=== PATIENT | male | born 1955 | race Caucasian/White ===

== ENCOUNTER → 2018-06-17 06:06 | Outpatient (CLI) | payer BC, SELFPAY ==
--- NOTE | 2018-06-17 | DI.MRI.S_ITS ---
PROCEDURE: MR WRIST RT WO/W CON INDICATIONS: Right wrist pain and weakness TECHNIQUE: Noncontrast coronal proton density fast spin echo and T2 fast spin echo with fat saturation; coronal 3-D gradient echo, axial T1 spin echo and T2 fast spin echo with fat saturation, axial T1 spin echo with fat saturation, sagittal T1 spin echo through the wrist. Post-contrast axial, coronal, and sagittal T1 spin echo with fat saturation through the wrist. COMPARISON: None. FINDINGS: Image quality: Excellent. Bones and cartilage: No suspicious osseous enhancement. The carpal bones are normally aligned. No bone marrow contusions or fractures. No evidence for avascular necrosis. Carpal ligaments: The scapholunate ligament is not well visualized and there is suspected widening of the scapholunate interval this could be confirmed with clenched fist radiographic evaluation. The lunotriquetral ligament appears intact. In the absence of intra-articular contrast, the extrinsic carpal ligaments are not well identified. Triangular fibrocartilage complex: The triangular fibrocartilage appears intact. The adjacent meniscal homolog appears normal in the absence of intra-articular contrast. The extensor carpi ulnaris tendon is normal in location and morphology. Tendons and soft tissues: No suspicious soft tissue enhancement. The carpal tunnel structures appear normal, including the median nerve. The ulnar nerve appears normal within Guyon's canal. Possible subcentimeter ganglion cyst seen in the region of the volar/ulnar aspect of the wrist joint capsule, image 15 series 5. There is extensor carpi radialis longus and brevis tenosynovitis image 18 series 5. There is also mild T2 hyperintensity surrounding the flexor tendons raising the possibility of carpal tunnel syndrome although this remains a clinical diagnosis. IMPRESSION: Scapholunate ligament tear although technically age-indeterminate. This could be confirmed with dedicated MR arthrography if clinically required. Extensor carpi radialis longus and brevis tenosynovitis. Diffuse mild T2 hyperintensity surrounding the flexor tendons raising possibility of carpal tunnel syndrome however this remains a clinical diagnosis and therefore recommend correlation to exam findings. Subcentimeter ganglion cyst involving the volar/ulnar aspect of the carpus. Dictated by: Stephen Mariano M.D. on 06/17/2018 at 8:58 Approved by: Stephen Mariano M.D. on 06/17/2018 at 9:09
== END ==
PROVIDERS: Visit Provider Family Medicine
DX: M25.531 Pain in right wrist (principal); S63.591A Other specified sprain of right wrist, initial encounter; M65.831 Other synovitis and tenosynovitis, right forearm; M67.431 Ganglion, right wrist
CPT/HCPCS: 73221; 73223

== ENCOUNTER 2020-11-28 09:03 | Observation (INO) | payer OTHER, BC, SELFPAY ==
[2020-11-28] VITALS (40 sets, daily range): BP systolic 93–178; BP diastolic 55–100; PULSE 78–108; RESP 10–93; TEMP 35.9–37.1; O2SAT 12–100; BMI 30.4
--- NOTE | 2020-11-28 | DI.RAD.S_ITS ---
PROCEDURE: XR SHOULDER RT MIN 2V INDICATIONS: POST REDUCTION TECHNIQUE: 2 fluoroscopic views of the shoulder were acquired. COMPARISON: Merged With [facility], , XR SHOULDER RT MIN 2V, 11/28/2020, 10:46. FINDINGS: Bones: Satisfactory reduction of shoulder dislocation. Displaced inferior glenoid fracture present. Soft tissues: No suspicious soft tissue calcifications. IMPRESSION: Satisfactory reduction of shoulder dislocation. Displaced inferior glenoid fracture. Dictated by: Florian Morrissey M.D. on 11/28/2020 at 18:49 Approved by: Florian Morrissey M.D. on 11/28/2020 at 18:49
--- NOTE | 2020-11-28 09:03 | DI.RAD.S_ITS ---
PROCEDURE: XR HUMERUS RT 2V INDICATIONS: fall, deformity TECHNIQUE: 2 views of the humerus were acquired. COMPARISON: None. FINDINGS: Bones: Anterior-inferior dislocation at glenohumeral joint is seen. Linear radiolucency involving inferior glenoid is seen suggestive of a minimally displaced fracture. No suspicious bony lesions. Soft tissues: Significant soft tissue swelling over anterolateral aspect of right shoulder is seen with suggestion of joint effusion. No suspicious soft tissue calcifications. IMPRESSION: Anterior-inferior dislocation at glenohumeral joint with minimally displaced fracture line through inferior glenoid. Dictated by: Markos Alejandra M.D. on 11/28/2020 at 9:43 Approved by: Markos Alejandra M.D. on 11/28/2020 at 9:49
--- NOTE | 2020-11-28 09:05 | ED.FALL ---
HPI - Fall General Chief Complaint: Extremity Injury, Upper Stated Complaint: GLF Time Seen by Provider: 11/28/20 09:03 Source: patient and EMS Mode of arrival: EMS Limitations: no limitations History of Present Illness HPI Narrative: This is a 65-year-old male who is brought via EMS for ground level fall. Patient states he tripped and fell at work landing on his right shoulder. Patient has significant pain at the shoulder. He also struck his head has a laceration of the right forehead. Patient denies loss of consciousness. He denies any neck or back pain. Patient denies any chest pain or shortness of breath. He describes tingling numbness down the whole arm and has difficulty with movement of his hand. Patient denies any current headache, numbness tingling or weakness in his other extremities. States he takes medication for hypertension dyslipidemia. He denies any major prior surgeries. No allergies to medications. He denies any blood thinners such as aspirin, Plavix or other anticoagulants. Patient states he was at work today when this occurred. He lives in [place]. Patient had several doses of pain medication with EMS and is still quite uncomfortable. Related Data Home Medications Medication Instructions Recorded Confirmed atorvastatin 40 mg tablet 40 mg PO DAILY 11/28/20 11/28/20 lisinopril 10 mg tablet 10 mg PO DAILY 11/28/20 11/28/20 omeprazole 20 mg capsule,delayed 20 mg PO DAILY 11/28/20 11/28/20 release Previous Rx's Medication Instructions Recorded ondansetron HCl 4 mg tablet 4 mg PO Q8H PRN #7 tab 11/28/20 (Zofran) oxycodone 5 mg tablet 5 mg PO Q4H PRN #42 tab 11/28/20 Allergies Allergy/AdvReac Type Severity Reaction Status Date / Time Penicillins Allergy Verified 11/28/20 09:10 Review of Systems Review of Systems ROS Unobtainable: All systems reviewed & are unremarkable except as noted in HPI and below Patient History Medical History Dyslipidemia Hypertension Social History household members: spouse Smoking Status: Never smoker Exam Narrative Exam Narrative: GEN: CPatient appears in moderate distress. HEAD: No evidence of trauma with the exception of 1.5 cm laceration of the right forehead that is gapped showing small amount of subcutaneous tissue, no raccoon/Salgado sign. NECK: Nontender, painless range of motion, trachea midline Negative for Nexus criteria, there is no line tenderness, distracting injury, altered mental status, neuro deficit, recent EtOH. EYES: PERRLA, EOMI ENT: External inspection normal other than noted above, trachea is midline, TM's are normal no hemotypanum, Nares are clear, no septal hematoma, no dental or oral injury, airway is normal and with normal occlusion, No bony tenderness RESP: Chest is nontender and has symmetric movement, no ecchymosis, breath sounds are normal no crackles, wheezes or rales CVS: Heart sounds are normal, no murmur noted, No JVD. ABG/GI: Nontender, soft, normal bowel sounds, no distention, no organomegaly, pelvic rock is negative NEURO: Oriented AOx3, neuro is grossly intact, sensation and motor is normal all 4 extremities moving, cranial nerves II through XII are intact, GCS is 15 PSYCH: Normal mood and affect SKIN: Intact, warm and dry, no crepitus and without decubitus BACK: No CVA tenderness, no vertebral tenderness, no step-off's, no crepitus EXT: Patient has obvious deformity at the right mid humeral shaft, patient does not have bony tenderness of the shoulder, clavicle or scapula, he does not tenderness in the or fingers. Patient has 2+ pulses bilaterally. He has sensation to light touch but states he is unable to flex or extend his fingers. Hips are nontender, no pedal edema, normal color and temperature, normal range of motion of all other extremities. Neurovascularly intact in his left upper extremity, and bilateral lower extremities. Initial Vital Signs Initial Vital Signs: Vital Signs Temperature 96.6 F L 11/28/20 09:00 Pulse Rate 84 11/28/20 09:00 Respiratory Rate 18 11/28/20 09:00 Blood Pressure 153/79 H 11/28/20 09:00 Pulse Oximetry 97 11/28/20 09:00 Procedures Laceration Repair Laceration 1: Site: face (forehead) Size (cm): 2.3 Description: linear Depth: simple, single layer Local Anesthetic: lidocaine 1% Amount of anesthesia used (mL): 1.5 Pre-repair: wound explored, irrigated extensively, deep structures intact, extensive debridement and wound margins revised Skin layer closed with: vicryl Size (cm): 5-0 Number of sutures: 4 Technique: simple, interrupted Orthopedic Joint Reduction Joint #1: Time Out Performed: Yes Side: right Joint Reduction Location: shoulder Analgesia: procedural sedation Shoulder Technique Used (if applicable): traction/counter-traction, scapula manipulation, external rotation, Milch, Vanesa and other (FARES) Post-reduction neuro exam: intact and no change Post-reduction vascular: intact and no change Post Reduction X-Ray Obtained: Yes Post Reduction X-Ray Results: not reduced (no major change in glenoid fracture.) Splint Applied: Yes Patient Tolerated Procedure: Well Procedural Sedation Consent signed: Yes Time out performed: Yes Indication: fracture/dislocation reduction ASA Class: II Mallampati Airway Classification: Class II Time of Last PO Intake: 06:00 Preparation: classroom monitor applied, pulse oximeter, capnometry used, supplemental O2 applied and suction/airway equipment at bedside Ketamine: IV Ketamine dose (mg): 90 IV Propofol dose (mg): 50 ED Sedation Level: Moderate (Concious) Patient Tolerated Procedure: Well Complications: none Interventions: Airway repositioned Additional Comments: Patient also had 0.5mg Ativan IV after receiving ketamine Scores GCS Lily coma scale eye opening: Spontaneous Lily coma scale verbal response: Orientated Friendship coma scale motor response: Obey commands Friendship coma scale total score: 15 Course Orders Ordered: ED Orders 11/28/20 10:46 XR shoulder RT min 2V Stat 11/28/20 11:08 CT UE RT wo con Stat Acetaminophen (Acetaminophen 325 Mg Tablet) 650 mg PO PACUNOW PRN PRN Reason: Pain, Mild (1-3) Albuterol (Albuterol 2.5 Mg/3 Ml Neb (Adult)) 2.5 mg INH NOW PRN PRN Reason: Coughing, Wheezing, Dyspnea Fentanyl (Fentanyl 100 Mcg/2 Ml Inj) 0 mcg IV Q5M PRN PRN Reason: Pain, Moderate (4-6) Hydromorphone HCl (Hydromorphone 1 Mg Inj) 1 mg IV Q30MIN PRN PRN Reason: Pain, Severe (7-10) Last Admin: 11/28/20 13:52 Dose: 1 mg Documented by: Admin: 11/28/20 11:44 Dose: 1 mg Documented by: RIMA Lactated Ringer's (Lactated Ringers) 1,000 mls @ 100 mls/hr IV NOW ONE Stop: 11/29/20 00:27 Last Infusion: 11/28/20 19:23 Dose: 0 mls/hr Documented by: Admin: 11/28/20 14:28 Dose: 100 mls/hr Documented by: HCRIS Lorazepam (Lorazepam 2 Mg/Ml Inj) 0.5 mg IV Q4HR PRN PRN Reason: emergence reaction Last Admin: 11/28/20 11:12 Dose: 0.5 mg Documented by: RIMA Ondansetron HCl (Ondansetron 4 Mg/2 Ml Inj) 4 mg IV Q6HR PRN PRN Reason: nausea Last Admin: 11/28/20 09:09 Dose: 4 mg Documented by: RIMA Ondansetron HCl (Ondansetron 4 Mg/2 Ml Inj) 4 mg IV NOW PRN PRN Reason: Nausea And Vomiting Oxycodone HCl (Oxycodone Ir 5 Mg Tablet) 5 mg PO PACUNOW PRN PRN Reason: Mild or moderate pain Last Admin: 11/28/20 19:13 Dose: 5 mg Documented by: NURIS Discontinued Medications Diphtheria/Tetanus/Acell Pertussis (Tet,Diph,Pertuss(Acell),Vac/Pf 0.5 Ml Syringe) 0.5 ml IM .ONCE ONE Stop: 11/28/20 12:34 Last Admin: 11/28/20 13:53 Dose: 0.5 ml Documented by: RIMA Hydromorphone HCl (Hydromorphone 1 Mg Inj) 1 mg IV NOW ONE Stop: 11/28/20 09:04 Last Admin: 11/28/20 09:09 Dose: 1 mg Documented by: RIMA Hydromorphone HCl (Hydromorphone 1 Mg Inj) 1 mg IM NOW ONE Stop: 11/28/20 10:04 Last Admin: 11/28/20 10:08 Dose: 1 mg Documented by: RIMA Hydromorphone HCl (Hydromorphone 0.5 Mg Inj) 1 mg IV NOW ONE Stop: 11/28/20 15:25 Last Admin: 11/28/20 16:08 Dose: 1 mg Documented by: CHRIS Sodium Chloride (Normal Saline 0.9%) 1,000 mls @ 150 mls/hr IV BOLUS ONE Stop: 11/28/20 17:18 Last Infusion: 11/28/20 14:01 Dose: 0 mls/hr Documented by: Admin: 11/28/20 10:40 Dose: 150 mls/hr Documented by: RIMA Ketamine HCl (Ketamine 500 Mg/5 Ml Inj) 90 mg 1 mg/kg (90 mg) IV NOW ONE Stop: 11/28/20 10:17 Last Admin: 11/28/20 10:43 Dose: 90 mg Documented by: RIMA Lidocaine/Sodium Bicarbonate (Lido 1%/Sod Bicarb 8.4% (10ml) 10 Ml Syringe) 10 ml INJ NOW ONE Stop: 11/28/20 09:04 Last Admin: 11/28/20 09:09 Dose: 10 ml Documented by: RIMA Lorazepam (Lorazepam 2 Mg/Ml Inj) 0.5 mg IV NOW ONE Stop: 11/28/20 15:31 Lorazepam (Lorazepam 2 Mg/Ml Inj) 0.5 mg IV NOW ONE Stop: 11/28/20 15:26 Last Admin: 11/28/20 16:09 Dose: 0.5 mg Documented by: CHRIS Consultations Consultation #1: Dr. Corea with orthopedic surgery. Does recommend to go ahead and attempt reduction discussed patient has inferior glenoid fracture. She is aware and asks us to attempt. Consultation #2: Dr. Corea, re-contacted. Unsuccessful after multiple attempts and [address] imaging of the shoulder. Plan for close reduction in the OR today. Patient is COVID negative. We did review his past medical history. Patient is NPO until then and COVID swab is negative. Time: 11:07 Vital Signs Vital signs: Vital Signs - 8 hr 11/28/20 11:28 11/28/20 11:30 11/28/20 11:45 Pulse Rate 87 84 87 Respiratory Rate 18 14 14 Blood Pressure 122/78 127/58 L Pulse Oximetry 97 94 11/28/20 12:00 11/28/20 12:30 11/28/20 13:00 Pulse Rate 87 91 H 89 Respiratory Rate 14 13 11 L Blood Pressure 119/60 123/60 120/71 Pulse Oximetry 93 94 97 MDM - Fall Lab Data Labs: Lab Results 11/28/20 Range/Units 09:15 SARS-CoV-2 (PCR) Negative (Negative) Imaging Data Extremity x-ray #1: Radiologist's Impression: [address] [address] XRay Report Signed Patient: MONTANA DE LA CRUZ MR#: [id number] : 1955 Acct:[id number] Age/Sex: 65 / M Date of Service: 11/28/20 Loc: ED Accession Number: [id number] ?? Procedure: XR humerus RT 2V Ordering Provider: Kmimy Zamora D.O. PROCEDURE:? XR HUMERUS RT 2V ? INDICATIONS:? fall, deformity ? TECHNIQUE:? 2 views of the humerus were acquired.? ? COMPARISON:? None. ? FINDINGS:? ? Bones:? Anterior-inferior dislocation at glenohumeral joint is seen.? Linear radiolucency involving inferior glenoid is seen suggestive of a minimally displaced fracture.? No suspicious bony lesions.? ? Soft tissues:? Significant soft tissue swelling over anterolateral aspect of right shoulder is seen with suggestion of joint effusion.? No suspicious soft tissue calcifications.? ? IMPRESSION:? Anterior-inferior dislocation at glenohumeral joint with minimally displaced fracture line through inferior glenoid. ? ? Dictated by: Markos Alejandra M.D. on 11/28/2020 at 9:43 ? ? Approved by: Markos Alejandra M.D. on 11/28/2020 at 9:49?? Extremity x-ray #2: Radiologist's Impression: Montana De La Cruz??65??M??1955 ? Allergy/Adv: Penicillins Close Shoulder X-Ray (Signed) Aristides Cunningham - 11/28/20 Humerus X-Ray (Signed) Markos Alejandra - 11/28/20 Radiology Report (Cancelled) Stephen Mariano - 06/17/18 Wrist MRI (Addendum) Stephen Mariano - 06/17/18 Wrist MRI (Cancelled) 06/17/18 Launch?Image [address] [address] XRay Report Signed Patient: Montana De La Cruz MR#: [id number] : 1955 Acct:[id number] Age/Sex: 65 / M Date of Service: 11/28/20 Loc: ED Accession Number: [id number] ?? Procedure: XR shoulder RT min 2V Ordering Provider: Kimmy Zamora D.O. PROCEDURE:? XR SHOULDER RT MIN 2V ? INDICATIONS:? post reduction shoulder ? TECHNIQUE:? 2 views of the shoulder were acquired.? ? COMPARISON:? [facility], CR, XR HUMERUS RT 2V, 11/28/2020, 9:24. ? FINDINGS:? ? Bones:? Anterior dislocation of the glenohumeral joint is redemonstrated with impaction of the posterior humeral head on the glenoid.? A minimally displaced inferior glenoid fracture is seen. ? Soft tissues:? No suspicious soft tissue calcifications.? Hyperdense material projecting over the scapula on lateral view is most likely outside of the patient. ? IMPRESSION:? Persistent anteroinferior glenohumeral dislocation status post attempted reduction.? Inferior glenoid fracture appears unchanged. ? ? Dictated by: Aristides Cunningham M.D. on 11/28/2020 at 10:58 ? ? Approved by: Aristides Cunningham M.D. on 11/28/2020 at 11:03 CT upper extremity: Radiologist's Impression: [address] Scan ReportSigned Patient: Montana De La Cruz MMR#: [id number]: 8Acct:[id number]/Sex: 65 / MDate of Service: 11/28/20Loc: EDAccession Number: [id number] Procedure: CT UE RT wo con Ordering Provider: Kimmy Zamora D.O. PROCEDURE: CT UE RT WO CON INDICATIONS: shoulder dislocation, inf glenoid fx. TECHNIQUE: Noncontrast 1-1.5 mm thick sections acquired from the acromioclavicular joint to the inferior scapula, with coronal and sagittal reformatting. COMPARISON: None. FINDINGS: Image quality: Excellent. Bones: Anteroinferior glenohumeral dislocation is again seen with impaction of the posterior humeral head on the glenoid. A Hill-Sachs lesion is difficult to measure due to positioning of the humerus. The humeral head also abuts the undersurface of the coracoid process. Osteophyte formation at the inferior humeral head is most likely related to chronic degenerative changes. There is a comminuted displaced fracture involving the inferior 1/3 to 1/2 of the glenoid. Multiple displaced and rotated osseous fragments are seen inferiorly and posteriorly. There is up to 10 mm posterior displacement of a larger osseous fragment. 3 mm inferior displacement of a more anterior fracture fragment is seen. No additional scapular fracture is seen. The acromioclavicular joint is intact with moderate degenerative changes. No clavicular fracture is seen. The included right upper ribs are intact. Soft tissues: There is moderate fatty infiltration of the subscapularis muscle and mild fatty infiltration of the supraspinatus and infraspinatus muscles. However, the rotator cuff tendons, ligaments, labrum, and articular cartilages are not well evaluated with CT. There is a moderate glenohumeral hemarthrosis. The axillary artery and vein are displaced inferiorly by the humeral head, although evaluation for vascular injury is suboptimal on this noncontrast exam. The axillary nerve is not well visualized. IMPRESSION: 1. Persistent anterior inferior glenohumeral dislocation with impaction of the humeral head on the glenoid. The humeral head also abuts the inferior surface of the coracoid process. 2. Comminuted displaced fracture involving the inferior 1/3 to 1/2 of the glenoid. 3. Moderate glenohumeral hemarthrosis. 4. Mild to moderate fatty infiltration of the rotator cuff musculature is worst in the subscapularis muscle, and may indicate underlying chronic rotator cuff tendinopathy that is not well evaluated with CT. Dictated by: Aristides Cunningham M.D. on 11/28/2020 at 12:01 Approved by: Aristides Cunningham M.D. on 11/28/2020 at 12:14 [facility] Narrative Medical decision making narrative: This is a 65-year-old male who had a ground level fall with laceration to right forehead as well as right shoulder dislocation. Patient also is noted to have inferior glenoid fracture. Patient was consented. We did review there is potential for this to be an unsuccessful procedure with a fracture of the glenoid. Patient had conscious sedation, with attempted reduction which was unsuccessful after multiple tries. Repeat imaging was performed does not show any new changes on x-ray imaging. Orthopedic surgery was consulted complaints today patient to the OR for close reduction. They do request CT which was obtained and shows 3rd to 1/2 of the glenoid with impaction of the humeral head on the glenoid. Patient's forehead laceration was repaired and verbal wound care instructions were given to his who is at bedside. Discharge Plan Departure Patient Disposition: Admitted to Surgery Clinical Impression: Dislocation of shoulder, Glenoid fracture of shoulder Admit Date/Time: 11/28/20 13:22 Admit Provider: Tami Corea
[2020-11-28] MEDS: LIDO 1%/SOD BICARB 8.4% (10ML) 10 ML SYRINGE INJ (09:09)
[2020-11-28] MEDS: HYDROMORPHONE 1 MG INJ IV ×3 (09:09→13:52)
[2020-11-28] MEDS: ONDANSETRON 4 MG/2 ML INJ IV (09:09)
[2020-11-28 09:43] LABS: COVID19 -Nasal RAPID Negative (Negative)
[2020-11-28] MEDS: HYDROMORPHONE 1 MG INJ IM (10:08)
[2020-11-28] MEDS: SODIUM CHLORIDE 0.9% 1,000 ML 150 ML IV (10:40)
[2020-11-28] MEDS: KETAMINE 500 MG/5 ML INJ 90 MG IV (10:43)
--- NOTE | 2020-11-28 10:46 | DI.RAD.S_ITS ---
PROCEDURE: XR SHOULDER RT MIN 2V INDICATIONS: post reduction shoulder TECHNIQUE: 2 views of the shoulder were acquired. COMPARISON: [facility], CR, XR HUMERUS RT 2V, 11/28/2020, 9:24. FINDINGS: Bones: Anterior dislocation of the glenohumeral joint is redemonstrated with impaction of the posterior humeral head on the glenoid. A minimally displaced inferior glenoid fracture is seen. Soft tissues: No suspicious soft tissue calcifications. Hyperdense material projecting over the scapula on lateral view is most likely outside of the patient. IMPRESSION: Persistent anteroinferior glenohumeral dislocation status post attempted reduction. Inferior glenoid fracture appears unchanged. Dictated by: Aristides Cunningham M.D. on 11/28/2020 at 10:58 Approved by: Aristides Cunningham M.D. on 11/28/2020 at 11:03
--- NOTE | 2020-11-28 11:08 | DI.CT.S_ITS ---
PROCEDURE: CT UE RT WO CON INDICATIONS: shoulder dislocation, inf glenoid fx. TECHNIQUE: Noncontrast 1-1.5 mm thick sections acquired from the acromioclavicular joint to the inferior scapula, with coronal and sagittal reformatting. COMPARISON: None. FINDINGS: Image quality: Excellent. Bones: Anteroinferior glenohumeral dislocation is again seen with impaction of the posterior humeral head on the glenoid. A Hill-Sachs lesion is difficult to measure due to positioning of the humerus. The humeral head also abuts the undersurface of the coracoid process. Osteophyte formation at the inferior humeral head is most likely related to chronic degenerative changes. There is a comminuted displaced fracture involving the inferior 1/3 to 1/2 of the glenoid. Multiple displaced and rotated osseous fragments are seen inferiorly and posteriorly. There is up to 10 mm posterior displacement of a larger osseous fragment. 3 mm inferior displacement of a more anterior fracture fragment is seen. No additional scapular fracture is seen. The acromioclavicular joint is intact with moderate degenerative changes. No clavicular fracture is seen. The included right upper ribs are intact. Soft tissues: There is moderate fatty infiltration of the subscapularis muscle and mild fatty infiltration of the supraspinatus and infraspinatus muscles. However, the rotator cuff tendons, ligaments, labrum, and articular cartilages are not well evaluated with CT. There is a moderate glenohumeral hemarthrosis. The axillary artery and vein are displaced inferiorly by the humeral head, although evaluation for vascular injury is suboptimal on this noncontrast exam. The axillary nerve is not well visualized. IMPRESSION: 1. Persistent anterior inferior glenohumeral dislocation with impaction of the humeral head on the glenoid. The humeral head also abuts the inferior surface of the coracoid process. 2. Comminuted displaced fracture involving the inferior 1/3 to 1/2 of the glenoid. 3. Moderate glenohumeral hemarthrosis. 4. Mild to moderate fatty infiltration of the rotator cuff musculature is worst in the subscapularis muscle, and may indicate underlying chronic rotator cuff tendinopathy that is not well evaluated with CT. Dictated by: Aristides Cunningham M.D. on 11/28/2020 at 12:01 Approved by: Aristides Cunningham M.D. on 11/28/2020 at 12:14
[2020-11-28] MEDS: LORazepam 2 MG/ML INJ 0.5 MG IV ×2 (11:12→16:09)
[2020-11-28] MEDS: propofoL 200 MG/20 ML VIAL IV (11:13)
[2020-11-28] MEDS: TET,DIPH,PERTUSS(ACELL),VAC/PF 0.5 ML SYRINGE IM (13:53)
[2020-11-28] MEDS: LACTATED RINGERS 1,000 ML 100 ML IV (14:28)
[2020-11-28] MEDS: HYDROMORPHONE 0.5 MG INJ 1 MG IV (16:08)
--- NOTE | 2020-11-28 17:07 | SUR.HOLD ---
Pt resting quietly. Awaiting Dr Arzola's arrival. VSS.
--- NOTE | 2020-11-28 17:41 | P.HP_ITS ---
History of Present Illness History of Present Illness Date Patient Seen: 11/28/20 Time Patient Seen: 17:41 Date of Onset of Symptoms: 11/28/20 Chief complaint: GLF Narrative: 65-year-old right-hand dominant male fell at work. Hit his head and sustained an injury to his right shoulder. Was brought to the emergency room he had a several stitches placed in his forehead laceration and was found to have a right shoulder fracture dislocation. Several attempts were made at closed reduction in the emergency room these were unsuccessful. He was indicated for formal closed versus open reduction in the emergency room. He endorses pain and swelling some numbness around the shoulder. He does clarify that the injury occurred at work. Denies other injuries and to his head and shoulder. Historical allergy to penicillins no other allergies Patient History Medical History Dyslipidemia Hypertension Family & Social History Social History: household members spouse Safety & Behavioral: Feels Safe in Current Yes Environment Been Physically Hurt or No Threatened By a Person Tobacco & Substance use: Smoking Status Never smoker alcohol intake frequency 0-2 drinks per day Substance Use Type does not use Meds Home Medications and Allergies Home Medications Medication Instructions Recorded Confirmed Type atorvastatin 40 mg tablet 40 mg PO DAILY 11/28/20 11/28/20 History lisinopril 10 mg tablet 10 mg PO DAILY 11/28/20 11/28/20 History omeprazole 20 mg capsule,delayed 20 mg PO DAILY 11/28/20 11/28/20 History release Allergies Allergy/AdvReac Type Severity Reaction Status Date / Time Penicillins Allergy Verified 11/28/20 09:10 Review of Systems Review of Systems ROS: Yes All systems reviewed with the patient and are negative except as otherwise documented Exam Vital Signs (past 8 hours): - 11/28/20 10:00 11/28/20 10:01 11/28/20 10:30 Temperature Pulse Rate 85 83 87 Respiratory Rate 18 17 18 Blood Pressure 127/60 107/79 Pulse Oximetry 96 95 96 11/28/20 10:42 11/28/20 10:45 11/28/20 10:50 Temperature Pulse Rate 84 105 H 108 H Respiratory Rate 18 23 13 Blood Pressure 150/72 H 178/90 H 169/85 H Pulse Oximetry 99 99 97 11/28/20 10:56 11/28/20 11:00 11/28/20 11:06 Temperature Pulse Rate 97 H 94 H 90 Respiratory Rate 24 45 H 16 Blood Pressure 152/87 H 142/76 H 131/78 Pulse Oximetry 98 98 95 11/28/20 11:10 11/28/20 11:15 11/28/20 11:20 Temperature Pulse Rate 86 84 82 Respiratory Rate 15 16 14 Blood Pressure 127/75 121/63 111/58 L Pulse Oximetry 93 93 93 11/28/20 11:25 11/28/20 11:28 11/28/20 11:30 Temperature Pulse Rate 84 87 84 Respiratory Rate 12 18 14 Blood Pressure 121/65 122/78 Pulse Oximetry 97 97 11/28/20 11:45 11/28/20 12:00 11/28/20 12:30 Temperature Pulse Rate 87 87 91 H Respiratory Rate 14 14 13 Blood Pressure 127/58 L 119/60 123/60 Pulse Oximetry 94 93 94 11/28/20 13:00 11/28/20 13:57 11/28/20 14:32 Temperature 97.7 F Pulse Rate 89 91 H 89 Respiratory Rate 11 L 20 Blood Pressure 120/71 137/89 Pulse Oximetry 97 100 97 11/28/20 16:10 11/28/20 16:38 11/28/20 16:59 Temperature 98.8 F Pulse Rate 98 H 94 H 96 H Respiratory Rate 13 14 14 Blood Pressure 152/100 H 158/98 H 148/86 H Pulse Oximetry 98 98 98 11/28/20 17:08 Temperature Pulse Rate 94 H Respiratory Rate 14 Blood Pressure 148/79 H Pulse Oximetry 98 Oxygen Delivery Method Nasal Cannula Oxygen Flow Rate 2 Narrative Exam Narrative: Patient is alert male he is lying in the stretcher in the preoperative unit. He sleepy but answers questions appropriately. Family with him. No acute distress. A long clear to auscultation bilaterally. HEENT does demonstrate some sutures on the forehead otherwise atraumatic. Heart regular rate and rhythm. Right shoulder demonstrates swelling deformity consistent with right shoulder fracture dislocation. No breaks in the skin. Does endorse decreased sensation in the axillary nerve distribution. Otherwise sensation intact to the right upper extremity. Strong palpable radial pulse. Dem onstrates finger flexion and extension wrist flexion and extension. Otherwise moves left upper extremity and bilateral lower extremities full range of motion without tenderness to palpation and good strength. Objective Imaging Right shoulder CT scan: My impression: Demonstrates right shoulder fracture dislocation with a comminuted glenoid fracture and anterior inferior dislocation of the humerus. Labs Labs: Laboratory Results - last 24 hr 11/28/20 09:15 SARS-CoV-2 (PCR) Negative Assessment & Plan Assessment and plan (1) Dislocation of shoulder: Status: Acute (2) Glenoid fracture of shoulder: Status: Acute (3) Fracture dislocation of shoulder joint: Status: Acute (4) Laceration of forehead: Status: Acute Plan: Regarding his right shoulder fracture dislocation he has been indicated for formal closed versus open reduction in the emergency room. He will need staged treatment and later addressing his comminuted glenoid fracture. This will require the attention of a shoulder specialist. Shoulder surgeon specialist is not available for the large reconstruction today but has been consulted within the plan is for staged treatment with closed versus open reduction of the fracture dislocation of the right shoulder followed by later definitive surgery with the shoulder specialist. The patient does appear to have a preoperative axillary nerve palsy with the numbness in this distribution. The risks and benefits of the procedure have been discussed with the patient even opportunity to ask questions. The risks of surgery include but are not limited to infection, malunion, nonunion, persistence of pain, damage to nerves and blood vessels, posttraumatic arthritis, DVT, PE, cardiopulmonary complications and . The patient expressed a thorough understanding of the risks and benefits of surgery and has elected to proceed. Consent was signed. Patient was elected to proceed. This injury occurred at work. L&I paperwork will be completed Regarding his forehead laceration this was repaired by the emergency room he will need be sutures out in 7-10 days COVID-19 COVID-19 status: Negative Time Spent With Patient Critical Care time: I spent a total of [] minutes of critical care time on this patient's care today; this time is exclusive of procedural time. Quality VTE Deep Vein Thrombosis/Pulmonary Embolism Present on Admission: No
--- NOTE | 2020-11-28 18:32 | PM.OP.1 ---
Operative Date/Time/Diagnoses Date of procedure: 11/28/20 Time of procedure: 18:02 Pre-op diagnosis: Right shoulder fracture dislocation Glenoid fracture right Forehead laceration Post-op diagnosis: same Procedure & Clinicians Procedure: Closed reduction right shoulder fracture dislocation with anesthesia CPT code 56334 Same procedure as scheduled: Yes Indications: Patient is a 65-year-old [id number] male that was at work. When he tripped and fell onto his right shoulder and hit his right head. 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 Date of [place] was 11/28/2020[id number]. He sustained an anterior inferior fracture dislocation of his right shoulder with a comminuted glenoid fracture. He was brought to [facility] Emergency Room. He was evaluated underwent attempted closed reduction with conscious sedation in the emergency room. This failed and he was indicated for formal closed versus open reduction in the operating room with general anesthetic. He had an extremely comminuted glenoid fracture that would require further treatment. Due to the unavailability of shoulder specialists at the time of injury he was indicated for separate reduction procedure and then later staged formal definitive treatment with shoulder specialist. The risks and benefits of the procedure have been discussed with the patient even opportunity to ask questions. The risks of surgery include but are not limited to infection, need for additional procedure, malunion, nonunion, persistence of pain, damage to nerves and blood vessels, posttraumatic arthritis, DVT, PE, cardiopulmonary complications and . The patient expressed a thorough understanding of the risks and benefits of surgery and has elected to proceed. Consent was signed. Surgeon: Tami Corea Click Yes if Unassisted: Yes Anesthesia Type: General Operative Notes Findings: Fracture dislocation right shoulder anterior inferior dislocation of the humeral head comminuted glenoid fracture. Closure Type: not applicable Specimen(s): none sent Estimated Blood Loss (mL): 0 Blood products transfused: none Tourniquet time (min): 0 Procedure in detail: Patient was seen in the preoperative area the site of surgery was marked informed consent confirmed. Additionally preoperative examination demonstrated decreased sensation in the axillary nerve distribution over the lateral shoulder skin. He had a strong radial pulse. Patient was then brought to the operating room positioned supine on the operative table. General anesthetic was administered. Formal time-out procedure was completed. The initial procedure was going to be an attempted closed reduction therefore antibiotics were held. Attention turned to the patient's right upper extremity. A blanket was placed in the axilla for counter traction in I provided steady distal traction on the arm with the elbow flexed to 90? while an assistant principal placed counter traction on the chest through the axilla blanket an additional assistant principal provided direct superior and downward pressure on the humeral head after traction was pulled on the arm with the elbow flexed gentle external rotation was completed and this demonstrated a satisfactory clunk and reduction into the glenoid. The C-arm was then brought in taken AP and Grashey x-ray confirming reduction of the glenohumeral joint. The contour of the shoulder was improved. Sling was replaced. Anesthesia was terminated and the patient was taken to the recovery room in good condition. There no immediate complications from this procedure. Complications: none Post-operative Condition: stable Disposition: PACU Plan for aftercare: The patient will be nonweightbearing to the right upper extremity. He will remain in the sling. May wiggle his fingers. He will need additional care to address is comminuted glenoid fracture. This will be transferred to our shoulder specialist Dr. Hamlet Durán. Of note in the recovery room the patient still had a decreased sensation in the axillary skin distribution but had markedly improved shoulder pain and appearance. He had good radial pulses that were palpable and is able to demonstrate wrist flexion extension and finger flexion and extension. He will be discharged home with oxycodone for pain and Zofran for anti nausea.
[2020-11-28] MEDS: OXYCODONE IR 5 MG TABLET PO (19:13)
--- NOTE | 2020-11-28 20:03 | SUR.PHASEII ---
Educated on use of incentive spirometer. Pt able to get to 1750cc. 2x2 placed over right forehead laceration. Discharge instructions went over with pt and . also educated on IS. 2x2's and paper tape sent home with pt - discussed with using OTC antibiotic ointment. Prescriptions given to . Instructed to use a stool softener while taking narcotics. to call 1st thing in the morning for appt with Dr Jordan.
== END 2020-11-28 19:40 | disposition home or self-care (01) ==
LOC: ED 12:39 → AC 13:23
PROVIDERS: Admitting Provider Orthopaedic Surgery Foot and Ankle Surgery; Emergency Provider Emergency Medicine; PCP Family Medicine; Referring Provider Emergency Medicine; Visit Provider Orthopaedic Surgery Foot and Ankle Surgery
PROC: (CPT 23655; principal; 2020-11-28 17:15)
DX: S43.034A Inferior dislocation of right humerus, initial encounter (principal); S42.141A Displaced fracture of glenoid cavity of scapula, right shoulder, initial encounter for closed fracture; S01.81XA Laceration without foreign body of other part of head, initial encounter; W01.10XA Fall on same level from slipping, tripping and stumbling with subsequent striking against unspecified object, initial encounter; Y93.89 Activity, other specified; Y92.62 Dock or shipyard as the place of occurrence of the external cause; Y99.0 Civilian activity done for income or pay; E78.5 Hyperlipidemia, unspecified; I10 Essential (primary) hypertension; Z20.822 Contact with and (suspected) exposure to COVID-19
CPT/HCPCS: 23655; 12011; 24505; 73030; 73060; 73200; 76000; 87635; 90471; 96361; 96372; 96374; 96375; 96376; 99285; C9803; G0378; 90715; J1100; J1170; J2060; J2405; J2704; J3010

== ENCOUNTER → 2021-01-09 09:51 | Outpatient (CLI) | payer OTHER, SELFPAY ==
[2021-01-09 11:30] LABS: COVID19 -Nasal RAPID Negative (Negative)
== END ==
PROVIDERS: PCP Family Medicine; Visit Provider Nurse Practitioner
DX: Z20.822 Contact with and (suspected) exposure to COVID-19 (principal); Z01.812 Encounter for preprocedural laboratory examination
CPT/HCPCS: 87635

== ENCOUNTER 2021-01-10 06:02 | Day surgery (SDC) | payer OTHER, SELFPAY ==
[2020-12-31 09:58] VITALS: BMI 30.4
[2021-01-10] VITALS (13 sets, daily range): BP systolic 73–118; BP diastolic 34–74; PULSE 73–114; RESP 12–19; TEMP 35.9–36.9; O2SAT 93–100; BMI 29.3
--- NOTE | 2021-01-10 06:00 | DI.RAD.S_ITS ---
PROCEDURE: XR SHOULDER RT MIN 2V INDICATIONS: postop prosthesis placement TECHNIQUE: 2 views of the shoulder were acquired. COMPARISON: [facility], CR, XR SHOULDER RT MIN 2V, 11/28/2020, 18:03. FINDINGS: Bones: A right shoulder arthroplasty is seen without evidence of hardware compromise. Soft tissues: A surgical drain and foci of soft tissue gas are are seen. IMPRESSION: Expected postop appearance. Dictated by: Christ Osullivan M.D. on 01/10/2021 at 11:54 Approved by: Christ Osullivan M.D. on 01/10/2021 at 11:55
[2021-01-10] MEDS: LACTATED RINGERS 1,000 ML 42 ML IV ×2 (07:01→09:17)
[2021-01-10] MEDS: ACETAMINOPHEN 325 MG TABLET 975 MG PO ×3 (07:05→19:25)
[2021-01-10] MEDS: PREGABALIN 75 MG CAPSULE PO (07:05)
[2021-01-10] MEDS: CELECOXIB 200 MG CAPSULE PO (07:05)
[2021-01-10] MEDS: VANCOMYCIN 1,000 MG/200 ML PIGGYBACK 200 MG IV ×2 (07:26→19:25)
--- NOTE | 2021-01-10 07:39 | PM.PREOP ---
Pre-operative Note Interval Note History & Physical reviewed/Exam performed by Physician: Yes Changes to H&P: No
--- NOTE | 2021-01-10 07:43 | SUR.PREOP ---
Block start time [0745] . Monitoring initiated and maintained throughout procedure. Oxygen and medications given per anesthesiologist instructions. Patient remained stable throughout procedure, no adverse reactions noted. Block end time [0750].
[2021-01-10] MEDS: MIDAZOLAM 2 MG/2 ML VIAL IV (07:45)
[2021-01-10] MEDS: fentaNYL 100 MCG/2 ML INJ 50 MCG IV (07:48)
[2021-01-10] MEDS: GENTAMICIN 200 MG in SODIUM CHLORIDE 0.9% 100 ML 105 ML IV (08:30)
--- NOTE | 2021-01-10 08:36 | SUR.OPER ---
Beach chair with [employer] shoulder positioner. Lower body on padded OR bed. Head in foam padded head cradle, secured with straps. Non-operative arm secured <90 degrees abduction. Pillow under knees. Safety belt at thigh. Cloth tape over blanket over lower legs.
[2021-01-10] MEDS: LIDOCAINE 1% W/EPI 20 ML INJ (08:42)
--- NOTE | 2021-01-10 10:26 | PM.OP.1 ---
Operative Date/Time/Diagnoses Date of procedure: 01/10/21 Time of procedure: 08:00 Pre-op diagnosis: Right shoulder fracture dislocation with rotator cuff arthropathy Post-op diagnosis: same Procedure & Clinicians Procedure: Open reduction internal fixation of glenoid fracture, reverse total shoulder arthroplasty Same procedure as scheduled: Yes Indications: Right shoulder fracture dislocation with history of rotator cuff arthropathy Surgeon: Hamlet Durán Concession Supervisor: Dorita Shell Anesthesia Type: General and Peripheral nerve block Operative Notes Findings: Fracture involving the inferior 1/3 of the glenoid. Complete rupture of the supraspinatus and infraspinatus as well as the majority of the subscapularis. Teres minor still attached. Degenerative changes throughout the humerus both medially and superiorly as well as arthritic changes to the glenoid as well as signs of the inferior glenoid fracture mentioned previously. There were some small bony fragments of the glenoid noted as well. Closure Type: primary Specimen(s): none sent Applied: implant(s) (28 mm +2 base plate, 39+ 4 x 28 glenosphere. 30 mm central screw, 16 mm locking screw as well as a 20 mm locking screw. Thirty-nine neutral suture cup, size 10 humeral stem, 39+ 6 humeral insert) Estimated Blood Loss (mL): 100 Blood products transfused: none Procedure in detail: On date of service, Patient was met in the holding area. The operative site was signed and witnessed by the OR staff. The surgeries once again discussed with the patient and any remaining questions they had were answered fully. Patient was taken back to the operating theater and placed on the operating table in a supine position. Great care was taken to ensure that all bony prominences were properly padded. Patient was then placed into the beach chair position. The head and neck were properly positioned and secured. A timeout was performed verifying patient's name, procedure, and the operative site. The upper extremity was then prepped and draped in the normal sterile fashion. Previously, the bony anatomy and incision were marked out as well as injected with Marcaine with epinephrine. A deltopectoral approach was performed. 10 blade was used to incise the skin and fascial tissue. A deep knife was used to continue sharp dissection until the cephalic vein was visualized. The cephalic vein was dissected free allowing us to expose the deltopectoral interval. This interval was then developed. A Moyer elevator was used to free up the deltoid of any scarring both superficially as well as deeply. The vein and the deltoid were taken laterally while the pectoralis was taken medially. This gave us good visualization of the strap muscles. The clavipectoral fascia was removed and the strap muscles were then retracted medially with the pectoralis. Patient had a previous dislocation a few weeks ago so there was signs of damage to the deltoid muscle as well as pectoralis. As mentioned above patient also had a fracture involving the inferior 3rd of the glenoid which was mildly displaced as well as some small bony fragments in the glenohumeral joint. Patient had complete loss of the entire rotator cuff except for teres minor and possibly a very small amount of subscapularis that did not look very healthy. The entire head was free of any soft tissue attachment. Patient had arthritic changes to the superior aspect of the humeral head as well as the glenohumeral joint involving both the humerus as well as the glenoid. An intramedullary guide was placed for the humeral cut. The head was removed. In a protective plate was placed to protect the osteotomy site. We then turned our attention to the glenoid. The degenerative anterior and inferior capsular tissue was removed. This was followed by removing the degenerative labral tissue from around the glenoid. Patient previously had sustained a proximal biceps rupture of the was no proximal biceps tendon attached to the superior labrum. The degenerative labral tissue and capsular tissue was removed giving Us good visualization of the glenoid. Guide pin was placed in the center of the glenoid. This gave us a good idea of the ventral screw length. Cannulated drill bit was placed over the guidewire and drilled. This was followed by a small Reamer then by the actual Reamer for the glenoid sphere which measured out to be a 39 mm. Copious irrigation was performed after all drilling and reaming. Once the glenoid was reamed the center hole was tapped. As mentioned above, patient had a fracture involving the inferior 1/3 of the glenoid. There was some minimal displacement. This was reduced and held provisionally. It was felt that the base plate would provide adequate fixation and help stabilize the inferior fragment. A 28 mm base plate was screwed into place. Locking screws were then placed superior and posteriorly. The inferior anterior hole we were unable to get a screw and due to the short length. While drilling the inferior posterior drill hole the tip of the drill bit broke off up against the central screw and was imbedded in the bone. Because of this we were unable to put a screw into that screw hole. It was felt that trying to use a cannulated drill to drill over the drill bit which causes to lose a lot of bony stock and might make the inferior fracture unstable. It was felt that would cause more damage than it would solve. C-arm was brought in to make sure the drill bit was surrounded in bone and not in the soft tissue. Once we determined that the tip of the drill bit was in bone, we proceeded with the glenoid portion of case. So we had a total of the central peg screw as well as 2 locking screws. The base plate was able to provide good fixation of the glenoid fragment reducing it and fixating the inferior 1/3 of the glenoid to the rest of the glenoid. Once the base placed was securely fixated to the glenoid the glenoid sphere was impacted into place in the center screw was placed for additional fixation. The area was then copiously irrigated and we turned our attention to the humerus. We Return to our attention back to the humerus. The humerus was then reamed and broached. Trial stem was placed and then reamed for the placement of the cup. Trial liners were trialed as well and the shoulder was reduced and taken through range of motions. The + 6 liner provided the most optimal stability. The trial components were removed and the final components which were a size 10 stem he did have as well as a neutral suture cup was impacted into the humerus. A + 6 liner was placed in the shoulders was reduced and taken through range of motion and was felt to be quite stable. The shoulder was copiously irrigated with pulse lavage and a drain was placed. The shoulder was closed in layered fashion and patient was extubated and taken to the PACU in stable condition. Complications: other (Tip of the drill bit broke off in the process of drilling 1 of the base plate screw holes. It was buried into the glenoid bone and was not able to be removed. C-arm was brought in to make sure it was fully encased in bone. See op note for more information.) Post-operative Condition: stable Disposition: Acute Care Plan for aftercare: Patient will follow our postoperative protocol for reverse total shoulder arthroplasty. Since there was no subscapularis to repair, patient can come out of the sling and begin gentle [id number] exercises within the next 1-2 weeks.
[2021-01-10] MEDS: LACTATED RINGERS 1,000 ML 125 ML IV ×2 (11:45→14:26)
--- NOTE | 2021-01-10 14:20 | PT.IIE ---
Current Diagnoses Pain in right shoulder (01/10/21) Displaced fracture of glenoid cavity of scapula, right shoulder, initial encounter for closed fracture (01/10/21) Surgery Performed Operation Date: 01/10/21 07:45 Actual Procedures p Total Shoulder Arthroplasty - Reverse w. poss. bone graft of the glenoid(Right) - Hamlet Durán MD Medical History (Last Updated 12/31/20 @ 10:00 by Temi Glasgow RN) Dyslipidemia GERD (gastroesophageal reflux disease) Hearing impaired Hypertension Nephritis Numbness Pre-diabetes Renal insufficiency Right rotator cuff tear Shortness of breath Physical Therapy Inpatient Evaluation/Re-Eval M1 PT/OT-IP Prior Functional Status Start: 01/10/21 15:52 Freq: NEEDED Status: Active Protocol: Document 01/10/21 14:20 AB (Rec: 01/10/21 16:07 AB [id number]) Medical Review Prior Functional Status Medical History Reviewed Yes Communication able to make needs known Mobility and Gait pt stated that he is independent with all mobilities and ambulation without AD; pt stated that he broke his R shoulder in november and has been on the sling since then and was able to manage with mobility and ADLs but spouse assists pt with shower needs Social History Household Members spouse Living Arrangements House Number of Floors (Floors) 3 or More Floors Number of Stairs To Enter/Railing? 7 steps B rails to enter the house from the front 12 steps L rail to enter the house from the garage 12 steps R rail to get into bedroom level Home Environment Standard Height Toilet,Walk in Shower,Built-In Shower Seat Additional Social History Comment has a recliner that pt can sleep on if needed M2 PT-IP Current Condition Start: 01/10/21 15:52 Freq: NEEDED Status: Active Protocol: Document 01/10/21 14:20 AB (Rec: 01/10/21 16:07 AB [id number]) Physical Therapy Current Condition Current Condition Evaluation Date 01/10/21 Treatment Diagnosis s/p R TSA reverse and genoid fx ORIF; difficulty in walking Onset Date 01/10/21 M3 PT-IP Subjective Start: 01/10/21 15:52 Freq: NEEDED Status: Active Protocol: Document 01/10/21 14:20 AB (Rec: 01/10/21 16:07 AB [id number]) Subjective Physical Therapy Visit Type Type Initial Evaluation Visit Start Time 14:20 Visit Stop Time 15:20 Total Visit Minutes 60 Number of FEATHER CUTTING MACHINE FEEDER Visits 0 Physical Therapy Visit Comments Patient Comments agreeable to do PT M4 PT-IP Mobility and Gait Start: 01/10/21 15:52 Freq: NEEDED Status: Active Protocol: Document 01/10/21 14:20 AB (Rec: 01/10/21 16:07 [email or web address]) PT-Bed Mobility Assessment Supine to Sit Supine to Sit Standby Assistance Sit to Supine Sit to Supine Standby Assistance PT-Transfer Assessment Sit to and From Stand Sit to and from Stand Contact Guard Assistance Equipment Transfer Assistive Device None,Gait Belt Orthotic/Prosthetic Devices or Brace: Yes Comments Mobility Comments spouse in room with pt. educated pt and spouse regarding pt's precautions and HEP. BP in supine: 98/60. pt completed supine to sit SBA and able to sit on EOB SBA. adjusted sling. educated spouse on how to manage sling. Pt still c/o numbness on RUE and still has no motor control on RUE. completed elbow/wrist/hand PROM. Spouse was able to don sling on pt. BP in sittin/58. pt completed sit to stand CGA and ambulated in room withotu AD ~ 50 ft CGA. unsteadiness and slight LOB towards the R but with recovery. pt sat back on EOB. BP: 88/53. pt requested to go back to bed and completed sit to supine SBA. positioned pt in bed. call light and table placed within reach. Spouse stated that she will be plan to be in here tomorrow morning ~ 9-10am. Gait Assessment Gait Gait Assistance Required: Contact Guard Assist,1 Person Assist Distance (Feet) 50 Able to Maintain Weight Bearing Status Yes During Gait Assistive Devices Assistive Device None,Gait Belt Orthotic/Prosthetic Devices or Brace: Yes Gait Deviations General Gait Pattern Ataxic,Decreased Stride Length ,Decreased Feet Clearance,Wide Based Gait Factors Limiting Gait Function Factors Limiting Gait Function Decreased Activity Tolerance, Decreased Sensation,Decreased Strength,Limited Range of Motion,Poor Balance PT-Balance Assessment Sitting Balance and Reactions Static Sitting Balance Ability Good Dynamic Sitting Balance Ability Good Standing Balance and Reactions Static Standing Balance Ability Fair Dynamic Standing Balance Ability Fair Device Used without AD M5 PT-IP Objective Assessments Start: 01/10/21 15:52 Freq: NEEDED Status: Active Protocol: Document 01/10/21 14:20 AB (Rec: 01/10/21 16:07 AB [id number]) Orientation Orientation/Cognition Level of Alertness Alert Orientation Name,Place,Situation Language Function Ability No Deficits Noted Safety Awareness Decreased Safety Awareness Memory Description No Deficits Noted Gross Range of Motion Lower Extremity ROM Assessment Within Functional Limits Strength Upper Extremity Strength Assessment Within Functional Limits Sensation Assessment Sensation Gross Sensation Right UE Impaired Light Touch Absent Proprioception (Position) Absent Sensation Description Numbness M6 PT-IP Treatment Start: 01/10/21 15:52 Freq: NEEDED Status: Active Protocol: Document 01/10/21 14:20 AB (Rec: 01/10/21 16:07 AB [email or web address]) Physical Therapy Treatment Exercises Exercises Elbow Flexion/Extension,Wrist ROM,Hand ROM Education Education Provided Precautions,Weight Bearing Status,Post-Op Packet,Safety M7 PT-IP Assessment and Plan Start: 01/10/21 15:52 Freq: NEEDED Status: Active Protocol: Document 01/10/21 14:20 AB (Rec: 01/10/21 16:07 AB [email or web address]) PT Summary Assessment and Plan Potential Rehabilitation Potential Good Status of Condition at Evaluation Evolving Summary Impairments Pain,ROM,Strength,Balance, Coordination,Sensation,Tone, Cognition,Bed Mobility, Transfers,Gait,Activity Tolerance Assessment Summary pt requiring CGA with mobility without AD. has low BP but without c/o dizziness. initiated caregiver training with spouse and spouse was able to manage sling. pt still does not have sensation and motor control back on RUE. will continue to assess progress. pt plans to go home and spouse will assist pt at home. Goals Bed Mobility Goal Independent Transfer Goal Independent Gait Goal Independent Gait Distance 200 Other Goals 12 steps R rail ascending SBA Days to Meet Goals 5 Frequency of Treatment Frequency Of Treatment Twice a Day Treatment Plan Physical Therapy Treatment Plan Bed Mobility Training,Transfer Training,Gait Training, Therapeutic Exercise,Balance Retraining,Post Op Education, Discharge Planning,Hot or Cold Pack,Neuromuscular Re-ed, Coordination Retraining,Manual Therapy Other Recommendations and Next Treatment ambulation without AD, stair Focus climbing, caregiver training when appropriate ( spouse plans to be in tomorrow at ~ 9 -10 am) Precautions Shoulder Precautions Sling,PROM,Internal Rotation to Body,No External Rotation, No Abduction,Forward Flexion to 90 degrees,Pendulums Weight Bearing Status Weight Bearing Status Non-Weight Bearing Allowed Weight Bearing Amount (enter % RUE NWB or #) (%) Recommendations To Nursing Amount of Assist Needed 1 Person Assist Discharge Recommendations PT Discharge Recommendations Home with Assistance, Outpatient PT Transportation Needs at Discharge Private Vehicle
--- NOTE | 2021-01-11 01:40 | PC.NURSE ---
Patient is alert and oriented. Breath sounds CTA with RA sat of 96%. HRR. Denied nausea. BT present and stated he is passing some flatus. Denied dysuria, frequency or urgency with urination; using urinal at bedside. Is able to move himself in bed. Aquacel dressing to right shoulder intact with several small spots of shadow drainage noted. Hemovac is intact and compressed. Right arm is in sling. Has good radial pulse but stated he still has some tingling in right hand/fingers. Gait not assessed at this time. Wearing bilateral calf SCD's. Denied pain. Fall risk score is moderate and bed alarm is activated.
[2021-01-11 03:15] VITALS: BP 108/65; PULSE 90; RESP 14; TEMP 36.2; O2SAT 95
[2021-01-11] MEDS: PANTOPRAZOLE DR 20 MG TABLET PO (05:37)
[2021-01-11] MEDS: ACETAMINOPHEN 325 MG TABLET 975 MG PO (06:17)
[2021-01-11 07:16] LABS: Hematocrit 30.4 % (41-53); Hemoglobin 10.1 g/dL (13.5-17.5); Mean Corpuscular HGB Conc 33.1 % (30-36); Mean Corpuscular Hemoglobin 28.8 PG (26-34); Mean Corpuscular Volume 86.9 fL (80-100); Platelet Count 191 X10^3/uL (150-400); Red Cell Distribution Width 13.4 % (11.6-14.8); White Blood Cell Count 12.1 X10^3/uL (4.5-11.0)
[2021-01-11 08:00] VITALS: BP 105/58; PULSE 89; RESP 16; TEMP 36.7; O2SAT 95
--- NOTE | 2021-01-11 08:51 | CM.DANOTE ---
DCP: Case received, EMR reviewed and met with patient. Introduced self and role. Was able to obtain information regarding patient's baseline activity level prior to his surgery. DCP assessment completed with information currently available. Patient is a 65 year old male who admitted yesterday morning to the care of the orthopedic team. PCP: Dr. Oneal. Payer: Confirmed: [employer]. Patient came to the hospital for a surgical procedure. He had reverse right total shoulder arthroplasty. Patient has history of dislocation of his rotator cuff, he sustained a fall at work in November when he tripped over a pipe on a barge. He is employed at [employer], which is a company that works with the [employer] out of [employer]. Met with patient in his room. He was sitting up in bed, alert and oriented, pleasant. He has his right arm in a sling post surgery. He is right handed, and has been able to compensate with his left hand. Confirmed with patient that he resides in [place] with his spouse, Allie. He has had his arm in a sling prior to this surgery, until he was able to get L&I to cover his surgery. He has been able to drive and has been mobile as well. 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 P: DCP to continue to follow. He had worked with therapy yesterday. His spouse will be here between 9:00-10:00 for more caregiver training. Patient also indicated that he is set up with outpatient P.T. in [place]. Martha Alexander RN/Ortho Assistant Discharge Planning/Care Management Discharge Assessment Start: 01/11/21 08:49 Freq: Status: Active Protocol: Document 01/11/21 08:49 (Rec: 01/11/21 08:51 [id number]) Discharge Planning Assessment Assigned Blocker Hand Martha Alexander RN/Ortho Assistant Advance Directives? No History Provided By Patient,Medical Record Prior Living Arrangements House Household Members spouse Type of transporation used prior to Drives own vehicle admit Independent with ADL's Yes Is patient alert and oriented? Yes Caregiver for Another No Patient/Family Preference OP PT Therapy Comment Patient indicated that he will be doing outpatient therapy in [place] Barriers to Discharge No Comment Patient has supportive at home. Discharge Plan Home Transportation Arrangement Spouse Referrals Initiated None needed Whiteboard Updated in Patient Room with Yes name and ext. # of Blocker Hand Review Status In Process Next Review Type Continued Stay Review Pre-Anesthesia Assessment Start: 12/26/20 08:57 Freq: Status: Complete Protocol: Document 12/31/20 09:58 CAB (Rec: 12/26/20 09:31 [facility] [id number]) Pre-Anesthesia Assessment Preferred Name Trip Patient Information Reviewed Via Phone Assessment Assessment Completed With Patient H&P Completed Within 30 Days Yes Comment Pt has not received orders yet , COVID screen @ 01/09/21 Primary Care Provider Jeremiah Oneal Seen Specialist in Last 12 Months Yes Specialist Seen Emergency,Orthopedist, Hepatology Physician Comment Pulmonary visit 12/28/20 scanned Primary Language Norwegian Preferred Language Norwegian Parts Cataloger Required No Height 5 ft 8 in Weight 200 lb Body Mass Index (BMI) 30.4 Hearing Ability Normal Visual Impairment No Limitations Visual Assist None Dentition Type Teeth, Natural Present Barriers to Learning None Hx Anesthesia Reactions No Hx Family Anesthesia Reaction No Hx Malignant Hyperthermia No Hx Blood Transfusions No Hx Blood Transfusion Reaction No Anesthesia Review Requested No alcohol intake current alcohol intake frequency a few times a month Smoking Status Former smoker Tobacco type cigarettes how long ago did patient quit smoking Quit age 24 Substance Use Type does not use Pain Present Pain Reported Musculoskeletal Symptoms Joint Pain,Limited Range of Motion,Numbness,Tingling History of Falling (Recent or History of Yes ) Patient is completely paralyzed or No completely immobile Mental Status Oriented to own ability Is patient on oxygen? No Does patient have HUI/SOB Yes: Started 06/2020 Hx Sleep Apnea No CPAP/BIPAP use not prescribed Currently Taking a Beta Jennifer No Can You Climb a Flight of Stairs Without No SOB Hx Chest Pain No Hx SOB Yes: Started 06/2020 Hx Syncope or Dizziness Yes: Dizziness with standing too quickly - started 06/2020 Anti-Coagulant Therapy No Has a Extruder Operator Horizontal No Cardiac Testing No Hx Pacemaker/ICD No Pacemaker Rep Required? No Cardiac Clearance Received Not Applicable Diet Type At Home Regular dysphagia No Gastrointestinal Symptoms Reflux Urinary Catheter Present No Hx Urinary Self Catheterization No Diabetes No Hx Drug Resistant Organism No Presence of External or Internal Medical No Devices Have you had any close contact with No someone diagnosed with COVID-19? Received a COVID vaccine? Yes Received all doses? Yes Marital Status Lives With spouse Prior Living Arrangements House Number of Floors (Floors) 3 or More Floors Support System Spouse Does the Patient Have Assistance After Yes Surgery Patient Discharge Plan Description Return Home Comment Pt advised overnight length of stay per surgeon Feels Safe in Current Environment Yes Been Physically Hurt or Threatened By a No Person in Current Environment Do you have thoughts of harming yourself None or others? Are you currently considering suicide? No Do you have a plan to hurt yourself or No Plan others? Do You Have Any Spiritual Beliefs That No May Affect Your HC Choices? Do You Have Any Cultural Practices That No May Affect Your HC Choices? Comment Jehovah'S Witness Who Can We Speak to About Patient's Care Family, friends Identifying Code for Release of Patient Declines to issue Information Health Care Proxy/Next of Kin Mar () Health Care Proxy Emergency Contact Name Mar () Emergency Contact Advance Directives? No Power of Philosophy And Religion Instructor No PAC Instructions Medications to take/avoid, Nasal antibiotic,No ETOH/ petroleum product on skin DOS, NPO,Post-op transportation,Pre -surgical wash,Sturdy shoes/ comfortable clothes,Do not bring valuables and remove jewelry
--- NOTE | 2021-01-11 09:39 | PM.DS.1 ---
History of Present Illness History of Present Illness Date Patient Seen: 01/11/21 Time Patient Seen: 09:39 Chief complaint: Shoulder pain Narrative: Pain currently is mild. Denies fever or chills. No nausea vomiting. Patient has is home to assist him. Patient does wish to be discharged home today if safe to do so. Discharge Providers Provider Discharge Date: 01/11/21 Primary care physician: Jeremiah Oneal MD Consults: 01/10/21 10:22 Consult to Discharge Planning Routine Comment: Consult to Physical Therapy Evaluate & Treat Comment: Physician Instructions: Evaluate and Treat Consult to Respiratory Therapy Evaluate & Treat Comment: Physician Instructions: Evaluate and treat Discharge provider: Shola Rodriguez PA-C Summary Hospital Course Discharge Diagnosis: Right shoulder fracture dislocation with rotator cuff arthropathy Hospital Course: Procedure: Open reduction internal fixation of glenoid fracture, reverse total shoulder arthroplasty Same procedure as scheduled: Yes Indications: Right shoulder fracture dislocation with history of rotator cuff arthropathy Surgeon: Hamlet Durán Microfilm Technician: Dorita Shell Anesthesia Type: General and Peripheral nerve block Operative Notes Findings: Fracture involving the inferior 1/3 of the glenoid.? Complete rupture of the supraspinatus and infraspinatus as well as the majority of the subscapularis.? Teres minor still attached.? Degenerative changes throughout the humerus both medially and superiorly as well as arthritic changes to the glenoid as well as signs of the inferior glenoid fracture mentioned previously.? There were some small bony fragments of the glenoid noted as well. Closure Type: primary Specimen(s): none sent Applied: implant(s) (28 mm +2 base plate, 39+ 4 x 28 glenosphere.? 30 mm central screw, 16 mm locking screw as well as a 20 mm locking screw.? Thirty-nine neutral suture cup, size 10 humeral stem, 39+ 6 humeral insert) Estimated Blood Loss (mL): 100 Blood products transfused: none Patient admitted to the hospital for the above-mentioned procedure. Patient consented to the same. Patient taken on operating room yesterday. Patient back in his room recovering well as in stable condition. Patient will work with physical therapy. Discharge home today in stable condition after physical therapy. Exam Vital Signs (past 8 hours): - 01/11/21 03:15 01/11/21 08:00 Temperature 97.2 F L 98.0 F Pulse Rate 90 89 Respiratory Rate 14 16 Blood Pressure 108/65 105/58 L Pulse Oximetry 95 95 Oxygen Delivery Method Room Air Oxygen Flow Rate 0 Narrative Exam Narrative: 65-year-old male resting comfortably in bed in no apparent distress. Dressing is Clean, dry, intact.. Hemovac shows scant serosanguineous drainage. Motor functions intact distal right upper extremity. Sensation grossly intact distal right upper extremity. Right hand is warm and dry. Objective Labs Result Diagrams: 01/11/21 06:30 Labs: Laboratory Results - last 24 hr 01/11/21 06:30 WBC 12.1 H RBC 3.50 L Hgb 10.1 L Hct 30.4 L MCV 86.9 MCH 28.8 MCHC 33.1 RDW 13.4 Plt Count 191 PFSH Medical History Dyslipidemia GERD (gastroesophageal reflux disease) Hearing impaired Hypertension Nephritis Numbness Pre-diabetes Renal insufficiency Right rotator cuff tear Shortness of breath Surgical History History of surgery (11/28/20) Hx of appendectomy Hx of colonoscopy Hx of colonoscopy with polypectomy Hx of metal removed from eye Hx of tonsillectomy Social History household members: spouse Smoking Status: Former smoker alcohol intake: current Discharge Assessment & Plan Assessment and Plan Assessment: Progressing as expected. Plan of Treatment: Discharge home today in stable condition. Patient will follow our postoperative protocol for reverse total shoulder arthroplasty.? Since there was no subscapularis to repair, patient can come out of the sling and begin gentle [id number]-ok-[id number] exercises within the next 1-2 weeks Discharge Plan Discharge Plan Patient Disposition: Home Discharge orders & Medications Discharge Orders: Discharge (Order); Ordered 01/11/21 Ordered By: Shola Rodriguez Prescriptions: New acetaminophen 325 mg Tablet 975 mg PO TID PRN (Reason: Headache) Qty: 60 RF: 0 docusate sodium 100 mg Capsule 100 mg PO BID Qty: 10 RF: 0 oxycodone 10 mg Tablet 5 mg PO Q3HR PRN (Reason: Pain, Severe (7-10)) Qty: 40 RF: 0 Continued atorvastatin 40 mg tablet 40 mg PO DAILY RF: 0 lisinopril 10 mg tablet 10 mg PO DAILY RF: 0 omeprazole 20 mg capsule,delayed release(DR/EC) 20 mg PO DAILY RF: 0 Discontinued acetaminophen 500 mg Tablet 500 mg PO DAILY PRN (Reason: Pain) RF: 0 Follow up/Referrals: Jeremiah Oneal MD [Primary Care Provider] - Diet/Activity/Treatments Diet: Diet as Tolerated Activity: patient can come out of the sling and begin gentle xkcft-yn-oruyle exercises within the next 1-2 weeks. Other treatments: Patient will follow our postoperative protocol for reverse total shoulder arthroplasty. Since there was no subscapularis to repair, patient can come out of the sling and begin gentle uiacr-mj-onceea exercises within the next 1-2 weeks. Skin/Wound/Dressing Care Report to your healthcare provider any signs of infection, such as:: chills, fever, increased pain, unusual drainage and unusual redness Dressing: Keep dressing clean and dry Visit Report/Discharge Packet Instructions: How to Use a Sling, DI for Constipation, How to Prevent Falls, DI for Shoulder Replacement Stand Alone Forms: Surgery Discharge Discharge Data Primary Care Provider: Jeremiah Oneal Attending Provider: Hamlet Durán VTE Deep Vein Thrombosis/Pulmonary Embolism Present on Admission: No
[2021-01-11] MEDS: ATORVASTATIN 20 MG TABLET 40 MG PO (09:53)
--- NOTE | 2021-01-11 10:45 | PT.IPTN ---
Current Diagnoses Pain in right shoulder (01/10/21) Displaced fracture of glenoid cavity of scapula, right shoulder, initial encounter for closed fracture (01/10/21) Surgery Performed Operation Date: 01/10/21 07:45 Actual Procedures p Total Shoulder Arthroplasty - Reverse w. poss. bone graft of the glenoid(Right) - Hamlet Durán MD Physical Therapy Treatment Note M2 PT-IP Current Condition Start: 01/10/21 15:52 Freq: NEEDED Status: Active Protocol: Document 01/10/21 14:20 AB (Rec: 01/10/21 16:07 AB [id number]) Physical Therapy Current Condition Current Condition Evaluation Date 01/10/21 Treatment Diagnosis s/p R TSA reverse and genoid fx ORIF; difficulty in walking Onset Date 01/10/21 M3 PT-IP Subjective Start: 01/10/21 15:52 Freq: NEEDED Status: Active Protocol: Document 01/11/21 10:22 CLB (Rec: 01/11/21 12:45 CLB [id number]) Subjective Physical Therapy Visit Type Type Treatment Note Visit Start Time 10:22 Visit Stop Time 10:45 Total Visit Minutes 23 Notes present for CG training Number of PRECISION GRINDER Visits 1 Physical Therapy Visit Comments Patient Comments agreeable to do PT Therapy Pain Assessment Pain When Pain Assessed During Mobility Pain Present Pain Present Pain Reported M4 PT-IP Mobility and Gait Start: 01/10/21 15:52 Freq: NEEDED Status: Active Protocol: Document 01/11/21 10:22 CLB (Rec: 01/11/21 12:45 CLB [id number]) PT-Bed Mobility Assessment Supine to Sit Supine to Sit Standby Assistance PT-Transfer Assessment Sit to and From Stand Sit to and from Stand Standby Assistance Equipment Transfer Assistive Device None,Gait Belt Orthotic/Prosthetic Devices or Brace: Yes Comments Mobility Comments Pt present. Pt stood from bed SBA and ambulated to BR where assist pt with toilet and donning LE clothing . Pt assisted pt with doffing sling and pt performed UE ther ex. Pt assisted pt with donning sling. GB placed on pt and pt ambulated SBA w/o AD in gonzalez to stairs climbing three steps x3 w/o rail SBA. Pt then continued ambulation in gonzalez SBA. Pt returned to room sitting on EOB. Pt left on EOB with present. RN informed of pt moibility. Gait Assessment Gait Gait Assistance Required: Standby Assistance,1 Person Assist Distance (Feet) 250 Able to Maintain Weight Bearing Status Yes During Gait Assistive Devices Assistive Device None,Gait Belt Orthotic/Prosthetic Devices or Brace: Yes Gait Deviations General Gait Pattern Ataxic,Decreased Stride Length ,Decreased Feet Clearance,Wide Based Gait Factors Limiting Gait Function Factors Limiting Gait Function Decreased Activity Tolerance, Decreased Sensation,Decreased Strength,Limited Range of Motion,Poor Balance Stair Climbing Assessment Evaluation Level of Assist On Stairs Standby Assistance,1 Person Assistance Devices Stair Climbing Assistive Devices None Technique/Endurance Stair Climbing Direction Ascend and Descend Stair Climbing Technique Step Over Step Number of Steps Climbed 3 Stair Climbing Set # Repetitions (reps) 3 PT-Balance Assessment Sitting Balance and Reactions Static Sitting Balance Ability Good Dynamic Sitting Balance Ability Good Standing Balance and Reactions Static Standing Balance Ability Fair Dynamic Standing Balance Ability Fair Device Used without AD M5 PT-IP Objective Assessments Start: 01/10/21 15:52 Freq: NEEDED Status: Active Protocol: Document 01/10/21 14:20 AB (Rec: 01/10/21 16:07 AB [id number]) Orientation Orientation/Cognition Level of Alertness Alert Orientation Name,Place,Situation Language Function Ability No Deficits Noted Safety Awareness Decreased Safety Awareness Memory Description No Deficits Noted Gross Range of Motion Lower Extremity ROM Assessment Within Functional Limits Strength Upper Extremity Strength Assessment Within Functional Limits Sensation Assessment Sensation Gross Sensation Right UE Impaired Light Touch Absent Proprioception (Position) Absent Sensation Description Numbness M6 PT-IP Treatment Start: 01/10/21 15:52 Freq: NEEDED Status: Active Protocol: Document 01/11/21 10:22 CLB (Rec: 01/11/21 12:45 CLB [id number]) Physical Therapy Treatment Exercises Exercises Shoulder Pendulums,Elbow Flexion/Extension,Wrist ROM, Hand ROM Education Education Provided Precautions,Weight Bearing Status,Post-Op Packet,Safety M7 PT-IP Assessment and Plan Start: 01/10/21 15:52 Freq: NEEDED Status: Active Protocol: Document 01/11/21 10:22 CLB (Rec: 01/11/21 12:45 CLB [id number]) PT Summary Assessment and Plan Potential Rehabilitation Potential Good Status of Condition at Evaluation Evolving Summary Impairments Pain,ROM,Strength,Balance, Coordination,Sensation,Tone, Cognition,Bed Mobility, Transfers,Gait,Activity Tolerance Progress Towards Goals Progressing Toward Goals Assessment Summary Pt is SBA for all mobility. Pt ambulated in gonzalez ~250ft w/o AD and climbed stairs SBA. Pt seems able to d/c home with to assist. Goals Bed Mobility Goal Independent Transfer Goal Independent Gait Goal Independent Gait Distance 200 Other Goals 12 steps R rail ascending SBA Days to Meet Goals 5 Frequency of Treatment Frequency Of Treatment Twice a Day Treatment Plan Physical Therapy Treatment Plan Bed Mobility Training,Transfer Training,Gait Training, Therapeutic Exercise,Balance Retraining,Post Op Education, Discharge Planning,Hot or Cold Pack,Neuromuscular Re-ed, Coordination Retraining,Manual Therapy Precautions Shoulder Precautions Sling,PROM,Internal Rotation to Body,No External Rotation, No Abduction,Forward Flexion to 90 degrees,Pendulums Weight Bearing Status Weight Bearing Status Non-Weight Bearing Allowed Weight Bearing Amount (enter % RUE NWB or #) (%) Recommendations To Nursing Amount of Assist Needed 1 Person Assist Discharge Recommendations PT Discharge Recommendations Home with Assistance, Outpatient PT Transportation Needs at Discharge Private Vehicle
--- NOTE | 2021-01-11 15:28 | PC.NURSE ---
Discharge: Pt feels ready for d/c. Seen by JOANNE Rodriguez and given instructions. Seen by PT and given instructions. He can go home from a PT stand point, safe. Hemovac removed intact. Tolerates diet w/out problems. Vds w/out diff. No use of narcotics, plain tylenol has been effective for pain. Reviewed d/c packet. Rx has been esent. Pt d/c home via auto with . Later in the shift the patient called and said his pharmacy had not received rx. CO Toby called and he handled the situation.
== END 2021-01-11 11:00 | disposition home or self-care (01) ==
LOC: OR 06:03 → AC 11:25
PROVIDERS: PCP Family Medicine; Referring Provider Orthopaedic Surgery; Visit Provider Orthopaedic Surgery
PROC: (CPT 23472; principal; 2021-01-10 07:45)
DX: S42.141A Displaced fracture of glenoid cavity of scapula, right shoulder, initial encounter for closed fracture (principal); M19.011 Primary osteoarthritis, right shoulder; M75.121 Complete rotator cuff tear or rupture of right shoulder, not specified as traumatic; S43.004A Unspecified dislocation of right shoulder joint, initial encounter; W19.XXXA Unspecified fall, initial encounter; Y99.0 Civilian activity done for income or pay
CPT/HCPCS: 23472; 23585; 36415; 64450; 73030; 85027; 97110; 97116; 97162; 97530; C1776; J2250; J2704; J3010